=== PATIENT | female | born 1955 | race Caucasian/White ===

== ENCOUNTER → 2019-08-09 09:40 | Outpatient (BNVA) | payer SELFPAY | PROVIDERS: Referring Provider Nurse Practitioner Family; Visit Provider Orthopaedic Surgery | DX: S69.92XA Unspecified injury of left wrist, hand and finger(s), initial encounter (principal); S52.502A Unspecified fracture of the lower end of left radius, initial encounter for closed fracture; X58.XXXA Exposure to other specified factors, initial encounter | CPT/HCPCS: 73110 ==

== ENCOUNTER 2019-08-09 13:15 | Day surgery (SDC) | payer SELFPAY ==
[2019-08-09] VITALS (9 sets, daily range): BP systolic 106–171; BP diastolic 68–87; PULSE 72–89; RESP 13–21; TEMP 36.1–36.6; O2SAT 92–99; BMI 22.6
--- NOTE | 2019-08-09 | XR_ITS ---
WS: [id number] C-ARM RADIOGRAPHS LEFT WRIST; 3 IMAGES HISTORY: OR PICS COMPARISON: 08/09/2019 Plate and screw fixation distal radial fracture. Fracture in normal alignment. Reduction and fixation . XR/XR wrist LT 2V [id number] IMPRESSION: Status post ORIF distal radial fracture now in good alignment.
--- NOTE | 2019-08-09 | SCC_ITS ---
Procedure Done: Open reduction internal fixation left 2 part distal radius fracture (extra-articular) 25.2 seconds of fluoroscopic guidance, for a cumulative dose of 1.32 mGy, was provided to Dr. Watts by the radiology department. C-arm images of the LEFT wrist were saved for the patient's permanent record. [facility], [place]
--- NOTE | 2019-08-09 14:07 | ANES.PREANE2 ---
Pre-Anesthetic Assessment Pre-Anesthetic Assessment: Height/Weight: Height 1.66 m Weight 62.596 kg Preop Diagnosis: impacted left distal radius fracture Proposed Procedure: Operation Date: 08/09/19 16:05 Proposed Procedures p ORIF Wrist 66830 S52.502A(Left) - Jeffrey Watts DO Familial anesthetic complications: None Was Beta Sherin taken within 24 hours: N/A Last intake: Intake 07 cinnamon toast crunch Last Liquid Date 08/09/19 Last Liquid Time 08:30 Last Solid Date 08/09/19 Last Solid Time 07:30 Social: Social History: Tobacco and No alcohol Exam: Pre-Anes Outpt Exam: alert, oriented x 3, clear to auscultation bilaterally and regular rate & rhythm Airway: Cervical ROM: WNL MP: 3 Dentition: False and Partials Pulmonary: Pulmonary: None reported CV/HEM: CV/HEM: None reported : : None reported Hepatic: Hepatic: None reported GI: GI: None reported Metabolic: Metabolic: None reported Musc/skel: Musc/skel: None reported Neuropsych: Neuropsych: None reported Anesthetic Plan: ASA status: 2 Anesthesia: General and Regional (specify below) Risk of > 500 ml blood loss (7ml/kg in children): No PFSH Anesthesia PFSH: Social History Smoking and tobacco status: current every day smoker Alcohol intake: never Data Anesthesia Cardiac Studies: No Data to Display
[2019-08-09] MEDS: midazolam 1 mg/mL INJ 2 mL 2 MG IVP (14:20)
[2019-08-09] MEDS: fentaNYL 50 mcg/mL INJ 2mL 100 MCG IVP (14:25)
--- NOTE | 2019-08-09 14:34 | ANES.PROC ---
Anesthesia Procedures Procedure/Date: 08/09/19 Nerve Block ^: Nerve Block 1: Main Anesthesia: general anesthesia Time Out Performed: Yes Consent: requested by attending/covering physician, from patient, risks and benefits reviewed and patient agrees to proceed Nerve block location: axillary (L + musculocutaneous) Anesthesia monitors applied: pulse oximetry, BP cuff and oxygen Anesthetic Used: ropivicaine 0.5% and with decadron (4 mg) Amount of anesthesia used (mL): 30 Ultrasound used to: recognize landmarks Nerve Stimulator Used?: No Interscalene/Femoral BLK: 2 stimuplex 22 g needle used for position and inplane approach, visualize local anesthetic spread and no vascular puncture identified Injection: neg aspiration of heme and paresthesia +/- (Parasthesia during placement of needle with immediate repositioning of stimuplex, no parasthesia before or during injections) Patient Tolerated Procedure: no complications Complications: none
[2019-08-09] MEDS: sodium chloride 0.9% 1,000 ML 30 ML IV (14:38)
[2019-08-09] MEDS: cefUROXime 1,500 MG in sodium chloride 0.9% (plus) 50 ML 100 MG IV (15:46)
[2019-08-09] MEDS: neomycin-poly-bacitracin oint 28 gm 1 APPLIC TOPICAL (16:39)
--- NOTE | 2019-08-09 17:01 | SUR.PHASEI ---
5437 PATIENT TO PACU AT THIS TIME FROM OR. RR EVEN AND UNLABORED. ORAL AIRWAY IN PLACE. DRESSING TO LEFT WRIST, CDI. CAP REFILL INTACT.
--- NOTE | 2019-08-09 17:04 | SUR.PHASEI ---
1704 ORAL AIRWAY REMOVED AT THIS TIME. SPO2 100% ON RA.
--- NOTE | 2019-08-09 17:26 | PM.OP ---
Operative Report Date of procedure: August 09, 2019 Pre-op Diagnosis: impacted left distal radius fracture Post-op diagnosis: same Post-op Findings: Satisfactory reduction left distal radius fracture Procedure Done: Open reduction internal fixation left 2 part distal radius fracture (extra-articular) Pathology: none sent Surgeon: Jeffrey Watts Anesthesia: General and Nerve Block Estimated blood loss (mL): 5 Tourniquet time (min): 59 IV fluids (mL): 1,000 Complications: No apparent complications Findings: Satisfactory reduction of fracture on AP and lateral images Condition: stable Disposition: PACU Brief History: D4-year-old white female had a fall on outstretched upper extremity. Sustained a fracture of her left distal radius. She was seen in outside medical facility. She is referred for orthopedic evaluation. Date of injury was 07/31/2019. She is seen in the office today. She had an impacted extra-articular distal radius fracture. The distal radius articular surface tilt was 20 degrees dorsiflexion versus palmar flex 12 degrees. She was a set up for an impending malunion. I recommend she undergo surgical prevention. Risks of surgical intervention include not limited to, infection, nerve/blood vessel/injury, failure fracture to heal potential cut out of implants which could require repeat surgery. Medical complications can include blood clots, heart attack, stroke risk up to including . All questions were answered patient we will proceed with surgery. Procedure: 1.5 g Zinacef Patient identified. Surgical site signed. Surgical permit signed. Patient received 1.5 g of Zinacef for prophylaxis intravenously. The patient received a left-sided axillary nerve block for intraoperative and postoperative analgesia. The patient was taken to the operating room. She was given intravenous sedation. Tourniquet is placed about the upper aspect of the left upper extremity. Left upper extremity was sterilely prepped draped fashion. Left upper extremity was exsanguinated using the Esmarch bandage and the tourniquet was inflated to 250 millimeters mercury pressure. Using a skin knife a 14 cm incision was made first longitudinally over the underlying flexor carpi radialis tendon and then turning obliquely over the thenar eminence. Full-thickness skin flaps were made. Crossing veins were coagulated with electrocautery. The flexor carpi radialis tendon was mobilized and retracted radially. The floor the tendon sheath was incised with a second knife. Using blunt digital dissection the flexor tendons and median nerve were pushed ulnarward and a self-retaining retractor was put in place. Using a second knife the pronator quadratus was released off the radial border of the volar surface of distal radius and swept ulnarward and held in place with the repositioned self-retaining retractor. The fracture site was identified in the fracture fragments reduced and appropriate sized volar plate from the [employer] Volar plate set was positioned in place and pinned provisionally using K wires. Fluoroscopic imaging demonstrated satisfactory reduction of the fracture and positioning of the plate. The volar plate was first secured using locking screws placed distally. the proximal aspect of the plate was then reduced down to the shaft of the radius helping correct the impaction of the fracture site. The proximal aspect of the plate was held in place then using a cortical screw and the oblong hole. Additional locking screws were placed proximally and distally. Fluoroscopic imaging was used to verify the appropriate length and placement of screws in both the distal portion of the plate as well as the shaft screws. Fluoroscopic imaging demonstrated satisfactory reduction placement of implants with no apparent complications. The incision was irrigated with Betadine-containing saline solution followed by antibiotic containing saline solution. The pronator quadratus muscle was swept radialward. Incision was closed in layers with 4-0 nylon skin. Antibiotic ointment was applied followed by Telfa and 4 x 4's. Sterile cast padding was applied followed by a volar plaster splint and an Prabhjot overwrap. The tourniquet was deflated during application of dressings. The patient was aroused from IV sedation. She tolerated surgery well. She was taken to the recovery room. All counts are correct.
--- NOTE | 2019-08-09 17:37 | SUR.PHASEI ---
1727 PATIENT TO OPS AT THIS TIME. DENIES PAIN. PATIENT A/OX3. TOLERATING ICE CHIPS. DRESSING TO LEFT WRIST, CDI CAP REFILL INTACT.
== END 2019-08-09 18:02 | disposition home or self-care (01) ==
PROVIDERS: Visit Provider Orthopaedic Surgery
PROC: (CPT 25607; principal; 2019-08-09 15:45)
DX: S52.552A Other extraarticular fracture of lower end of left radius, initial encounter for closed fracture (principal); W19.XXXA Unspecified fall, initial encounter; F17.210 Nicotine dependence, cigarettes, uncomplicated
CPT/HCPCS: 25607; 12345; 73100; 73120; 76000; 96365; 96374; 96375; C1713; J0131; J0697; J1100; J1580; J1885; J2001; J2250; J2405; J2704; J2795; J3010; J3490; J7030

== ENCOUNTER → 2019-08-25 14:19 | Outpatient (BNVA) | payer SELFPAY | PROVIDERS: Visit Provider Orthopaedic Surgery | DX: T14.8XXA Other injury of unspecified body region, initial encounter (principal); S52.502A Unspecified fracture of the lower end of left radius, initial encounter for closed fracture; Z48.89 Encounter for other specified surgical aftercare; X58.XXXA Exposure to other specified factors, initial encounter | CPT/HCPCS: 73110 ==

== ENCOUNTER → 2019-09-24 10:19 | Outpatient (BNVA) | payer SELFPAY | PROVIDERS: Visit Provider Orthopaedic Surgery | DX: S52.502D Unspecified fracture of the lower end of left radius, subsequent encounter for closed fracture with routine healing (principal); X58.XXXD Exposure to other specified factors, subsequent encounter | CPT/HCPCS: 73110 ==

== ENCOUNTER → 2019-10-20 10:51 | Outpatient (BNVA) | payer SELFPAY | PROVIDERS: Visit Provider Orthopaedic Surgery | DX: S52.502A Unspecified fracture of the lower end of left radius, initial encounter for closed fracture (principal); Z48.89 Encounter for other specified surgical aftercare; X58.XXXA Exposure to other specified factors, initial encounter | CPT/HCPCS: 73110 ==

== ENCOUNTER → 2021-01-17 16:56 | Outpatient (BNVA) | payer OTHER, SELFPAY | PROVIDERS: Visit Provider Emergency Medicine | DX: M25.562 Pain in left knee (principal); M17.12 Unilateral primary osteoarthritis, left knee | CPT/HCPCS: 73562 ==

== ENCOUNTER → 2021-01-25 09:17 | Outpatient (BNVA) | payer OTHER, SELFPAY | PROVIDERS: Visit Provider Emergency Medicine | DX: S82.009A Unspecified fracture of unspecified patella, initial encounter for closed fracture (principal); M17.12 Unilateral primary osteoarthritis, left knee; M25.562 Pain in left knee; X58.XXXA Exposure to other specified factors, initial encounter | CPT/HCPCS: 73562 ==

== ENCOUNTER 2021-11-28 17:18 | Emergency (ER) | payer MEDICARE, SELFPAY ==
[2021-11-28 17:55] VITALS: BP 198/116; PULSE 88; RESP 15; TEMP 36.8; O2SAT 98; BMI 21.6
--- NOTE | 2021-11-28 18:07 | CTR_ITS ---
PROCEDURE INFORMATION: Exam: CT Maxillofacial Without Contrast Exam date and time: 11/28/2021 6:51 PM Age: 66 years old Clinical indication: Injury or trauma; Fall; Blunt trauma (contusions or hematomas); Head/scalp and nose; Without loss of consciousness TECHNIQUE: Imaging protocol: Computed tomography of the of the face without contrast. Radiation optimization: All CT scans at this facility use at least one of these dose optimization techniques: automated exposure control; mA and/or kV adjustment per patient size (includes targeted exams where dose is matched to clinical indication); or iterative reconstruction. COMPARISON: CT head wo con* [id number] 11/28/2021 6:48 PM RADIATION DOSE METRICS: Total DLP (mGy-cm): 583.88 FINDINGS: Orbital cavities: Orbits are normal. Globes are unremarkable. Bones/joints: No acute fracture. Paranasal sinuses: Normal. No air-fluid levels. Soft tissues: Unremarkable. CT/CT facial bones wo con* [id number] IMPRESSION: No facial bone fracture.
--- NOTE | 2021-11-28 18:07 | CTR_ITS ---
PROCEDURE INFORMATION: Exam: CT Head Without Contrast Exam date and time: 11/28/2021 6:48 PM Age: 66 years old Clinical indication: Injury or trauma; Fall; Blunt trauma (contusions or hematomas); Additional info: Fall, patient unable to lay on back for scan due to pain. All imaging was done with patient laying on her left side. TECHNIQUE: Imaging protocol: Computed tomography of the head without contrast. Sagittal and coronal reformatted images were created and reviewed. Radiation optimization: All CT scans at this facility use at least one of these dose optimization techniques: automated exposure control; mA and/or kV adjustment per patient size (includes targeted exams where dose is matched to clinical indication); or iterative reconstruction. COMPARISON: No relevant prior studies available. RADIATION DOSE METRICS: Total DLP (mGy-cm): 1098.6 FINDINGS: Brain: No acute intracranial hemorrhage. No acute infarct. No intra-axial or extra-axial masses. [place]-white matter differentiation is preserved. No cerebral edema. No extra-axial fluid collections. No midline shift. Mild atrophy of the brain parenchyma. Mildly decreased attenuation in the deep white matter, consistent with mild chronic microangiopathic change. No evidence for Chiari 1 malformation. Cerebral ventricles: No hydrocephalus. Paranasal sinuses: Visualized paranasal sinuses are clear. Mastoid air cells: Small amount of fluid in the right and left mastoid air cells. Orbital cavities: Globes and lenses, extraocular muscles, and optic nerves are intact bilaterally. No acute intraorbital abnormality. Bones/joints: No acute fracture. Soft tissues: No acute abnormality of the extracranial soft tissues. Vasculature: Mild atherosclerotic changes in the visualized arteries. CT/CT head wo con* [id number] IMPRESSION: 1. Mild atrophy of the brain parenchyma. 2. Mild chronic white matter microangiopathic change. 3. Small amount of fluid in the right and left mastoid air cells. 4. Incidental/nonacute findings are listed in the report.
--- NOTE | 2021-11-28 18:07 | CTR_ITS ---
PROCEDURE INFORMATION: Exam: CT Chest Without Contrast; Diagnostic Exam date and time: 11/28/2021 6:53 PM Age: 66 years old Clinical indication: Injury or trauma; Fall; Generalized; Blunt trauma (contusions or hematomas); Prior surgery; Surgery date: 6+ months; Surgery type: Gb, hyst, appx, c sections; Additional info: Fall trauma TECHNIQUE: Imaging protocol: Diagnostic computed tomography of the chest without contrast. Sagittal and coronal reformatted images were created and reviewed. Radiation optimization: All CT scans at this facility use at least one of these dose optimization techniques: automated exposure control; mA and/or kV adjustment per patient size (includes targeted exams where dose is matched to clinical indication); or iterative reconstruction. COMPARISON: CT abdomen pelvis w con* [id number] 10/17/2017 1:58 PM RADIATION DOSE METRICS: Total DLP (mGy-cm): 572.51 FINDINGS: Limitations: Evaluation of the mediastinum and vasculature is limited without intravenous contrast. Trachea: Tracheobronchial structures are patent. Lungs: Mild ground-glass opacification in the lateral left lingula and anterolateral left lower lobe suspicious for pulmonary contusion. Noncalcified nodule in the right middle lobe with an average measurement of 5 mm (series 3, image 43). Pleural spaces: No pneumothorax. No pleural effusion. Heart: Stable mild enlargement of the heart. Mild atherosclerotic calcification in the coronary arteries. Calcification of the aortic valve. Esophagus: The esophagus is unremarkable. Mediastinal space: No mediastinal hematoma. No pneumomediastinum. Lymph nodes: Calcified mediastinal and bilateral hilar lymph nodes. Vasculature: Mild atherosclerotic changes in the visualized arteries. No evidence for aortic aneurysm. Bones/joints: Bones are diffusely osteopenic. Old fractures of the posterior right 7th, 8th, and 9th ribs. No acute fracture. Multilevel degenerative changes of varying severity in the visualized spine. Soft tissues: No acute abnormality in the extrathoracic soft tissues. risk factors), consider optional CT Chest at 12 months. (Reference: Perico) 3. Incidental/nonacute findings are listed in the report. REFERENCES: Perico Rivera et al. Guidelines for Management of Incidental Pulmonary Nodules Detected on CT Images: From the Fleischner Society 2017. Radiology. 2017;284(1):228-243. PROCEDURE INFORMATION: Exam: CT Abdomen And Pelvis Without Contrast Exam date and time: 11/28/2021 6:53 PM Age: 66 years old Clinical indication: Injury or trauma; Fall; Generalized; Blunt trauma (contusions or hematomas); Prior surgery; Surgery date: 6+ months; Surgery type: Gb, hyst, appx, c sections; Additional info: Fall trauma TECHNIQUE: Imaging protocol: Computed tomography of the abdomen and pelvis without contrast. Sagittal and coronal reformatted images were created and reviewed. Radiation optimization: All CT scans at this facility use at least one of these dose optimization techniques: automated exposure control; mA and/or kV adjustment per patient size (includes targeted exams where dose is matched to clinical indication); or iterative reconstruction. COMPARISON: CT abdomen pelvis w con* [id number] 10/17/2017 1:58 PM RADIATION DOSE METRICS: Total DLP (mGy-cm): 572.51 FINDINGS: Limitations: Evaluation of solid organs and vasculature is limited without intravenous contrast. Liver: Multiple calcified granulomas in the liver. Gallbladder and bile ducts: Patient has had a previous cholecystectomy. Pancreas: The pancreas is unremarkable. No pancreatic ductal dilatation. Spleen: Multiple calcified granulomas in the spleen. Adrenal glands: The right and left adrenal glands are unremarkable. Kidneys and ureters: The right kidney is unremarkable. Interval development of mild atrophy involving the left kidney with mild left hydronephrosis and mild left perinephric inflammation. The right and left ureters are unremarkable. Stomach and bowel: Scattered diverticula in the sigmoid colon. No evidence for diverticulitis. No acute abnormality in the small bowel. The stomach is collapsed, which can limit evaluation. No focal abnormality in the stomach otherwise. Appendix: Appendix not definitely visualized. No inflammatory changes in the pericecal region however. Intraperitoneal space: No free intraperitoneal air. No ascites. No loculated fluid collections to suggest an abscess. Vasculature: Moderate atherosclerotic changes in the visualized arteries. No evidence for aortic aneurysm. Lymph nodes: No lymphadenopathy. Urinary bladder: The bladder is unremarkable. Reproductive: The uterus, right ovary, and left ovary are unremarkable. Bones/joints: Degenerative changes in the spine, sacroiliac joints, and hips. Soft tissues: No acute abnormality in the extra-abdominal soft tissues. CT/[place] [id number] IMPRESSION: 1. Mild ground-glass opacification in the lateral left lingula and anterolateral left lower lobe suspicious for pulmonary contusion. 2. Noncalcified nodule in the right middle lobe with an average measurement of 5 mm (series 3, image 43). For patients at low risk (minimal or absent history of smoking and of other known risk factors), no routine follow-up is indicated. For patients at high risk (history of smoking or of other known IMPRESSION: 1. Interval development of mild atrophy involving the left kidney with mild left hydronephrosis and mild left perinephric inflammation. Findings could suggest left UPJ obstruction. Recommend clinical correlation. 2. No evidence for acute traumatic injury in the abdomen or pelvis. 3. Scattered diverticula in the sigmoid colon. No evidence for diverticulitis. 4. Incidental/nonacute findings are listed in the report.
--- NOTE | 2021-11-28 18:09 | W.ED.GENADLT ---
HPI - General Adult General: Chief complaint: Fall Stated complaint: Fall/rib pain Time Seen by Provider: 11/28/21 18:07 History of Present Illness: Patient is a 66-year-old female without significant past medical who presents emergency room after an episode of fall. Patient tells me that she was cooking and in the kitchen when she spilled some of the grease and she slipped on the grease and fell forward. Patient fell face down. Patient denies any LOC. Patient complains of anterior chest pain that radiates towards the back. Patient also reports headache. Denies any neck pain, arm pain or other injuries. Patient denies any anticoagulation. Has no associate chest pain, short of breath, palpitation, lightheadedness nausea/vomiting, diarrhea melena hematochezia. Patient denies any other complaints during, prior to or after the fall. Onset: 1 hr ago Duration:once Location:home Severity:moderate Associated symptoms: Reports chest pain (+anterior chest pain); Deny dyspnea, nausea, rash, palpitations or vomiting Review of Systems Const: Denies: fever(s) or chills Eyes: Denies: change in vision ENMT: Denies: mouth pain Card: Reports: chest pain (+anterior chest pain); Denies: palpitations Resp: Denies: dyspnea or non-productive cough GI: Reports: abdominal pain (+upper abdominal pain); Denies: nausea, vomiting or diarrhea : Denies: dysuria Musc: Denies: extremity pain Skin/Breast: Denies: rash or new lesions Neuro: Denies: weakness in extremities Psych: Reports: other (Normal mood) Dino/Lymph: Denies: easy bruising PFS ED PFSH: Medical History Allergies Family History Other Cancer Social History Smoking and tobacco status: never smoked Alcohol intake: never Substance/Drug Use: never Female Reproductive History: Spontaneous abortions: No Physical Exam Const: COMMON NORMALS: alert HENMT: COMMON NORMALS: atraumatic HEAD & SCALP: atraumatic MOUTH: moist mucous membranes not abnormal Eye: COMMON NORMALS: EOMs intact bilaterally and conjunctivae normal CONJUNCTIVA: Yes conjunctivae normal Neck/C-Spine: COMMON NORMALS: full ROM and supple Chest: OTHER: +Mild anterior manubrium tenderness to palpation Resp: COMMON NORMALS: normal respiratory effort and clear to auscultation bilaterally AUSCULTATION: clear to auscultation bilaterally Cardio: COMMON NORMALS: regular rate RATE: regular rate GI: COMMON NORMALS: Soft to palpation PALPATION: Yes Soft to palpation OTHER: +mild midepigastric focal TTP. NO guarding rebound, guarding, rigidity. No CVA tenderness to percussion. Neg Stout/Neg McBurney's point tenderness, no suprabupic tenderness to palpation. Extremity: COMMON NORMALS: full ROM Neuro: SENSORIUM/ORIENTATION: Yes alert MOTOR EXAM: No Abnormal motor strength present and Other motor observations present (no focal motor deficits) Psych: COMMON NORMALS: speech normal SPEECH: Yes normal speech MOOD & AFFECT: Yes euthymic mood Course Vital Signs: Vital signs: Vital Signs Temperature 98.3 F 11/28/21 17:55 Pulse Rate 88 11/28/21 17:55 Respiratory Rate 18 11/28/21 18:20 Blood Pressure 198/116 11/28/21 17:55 Pulse Oximetry 98 11/28/21 17:55 Oxygen Delivery Me thod 11/28/21 17:55 MDM - General Adult Medical Decision Making Patient is a 66-year-old female without significant past medical who presents emergency room after an episode of fall. On exam, patient has mild tenderness palpation of the manubrium and midepigastric jeremie area. Patient has no crepitus or other focal chest abdominal tenderness to palpation. Patient continues to be hemodynamically stable. Given fall, we will order imaging for further evaluation. CT head, CT face negative for any acute findings. Patient received morphine and Tylenol with improvement in pain. On CT abdomen, patient was found to have left mild hydronephrosis with mild perinephric stranding. UA negative for any signs of UTI. Patient is noted to have creatinine 1.1. Discussed this with patient instructed patient to drink plenty water and repeat creatinine in 1 week. No leukocytosis. Patient is noted on CT scan to have pulmonary contusion. Troponin x2 with delta less than 5. The present time, do not suspect any concerns for cardiac contusion. There is no new T wave inversions at this time. Patient continues satting well, without any signs of respiratory decompensation. Patient will be given close follow-up with general surgery at this time. Rx: Perocet Lidocaine patch, and menthol PRN pain, incentive spirometer for pulmonary contusion Disposition: Discharge. Patient counseled regarding diagnostic impression, treatment plan. Patient given ED strict return precautions to return for continuation, worsening, or development of new symptoms. Instructed to f/u w/ PCP regarding symptoms today. Patient verbalized understanding. Lab Data : 11/28/21 21:02 11/28/21 21:02 Radiology Impressions Chest/Abdomen/Pelvis CT 11/28/21 18:07 IMPRESSION: 1. Mild ground-glass opacification in the lateral left lingula and anterolateral left lower lobe suspicious for pulmonary contusion. 2. Noncalcified nodule in the right middle lobe with an average measurement of 5 mm (series 3, image 43). For patients at low risk (minimal or absent history of smoking and of other known risk factors), no routine follow-up is indicated. For patients at high risk (history of smoking or of other known IMPRESSION: 1. Interval development of mild atrophy involving the left kidney with mild left hydronephrosis and mild left perinephric inflammation. Findings could suggest left UPJ obstruction. Recommend clinical correlation. 2. No evidence for acute traumatic injury in the abdomen or pelvis. 3. Scattered diverticula in the sigmoid colon. No evidence for diverticulitis. 4. Incidental/nonacute findings are listed in the report. Face CT 11/28/21 18:07 IMPRESSION: No facial bone fracture. Head CT 11/28/21 18:07 IMPRESSION: 1. Mild atrophy of the brain parenchyma. 2. Mild chronic white matter microangiopathic change. 3. Small amount of fluid in the right and left mastoid air cells. 4. Incidental/nonacute findings are listed in the report. Laboratory Results WBC 9.3 10^3/uL (4.0-10.0) 11/28/21 21:02 RBC 4.75 10^6/uL (4.1-5.3) 11/28/21 21:02 Hgb 14.8 g/dL (11.5-15.3) 11/28/21 21:02 Hct 43.7 % (37.0-47.0) 11/28/21 21:02 MCV 92.0 fl (81-99) 11/28/21 21:02 MCH 31.2 pg (28.0-34.0) 11/28/21 21:02 MCHC 33.9 g/dL (30.0-36.0) 11/28/21 21:02 RDW 13.2 % (12.1-15.1) 11/28/21 21:02 Plt Count 257 10^3/cmm (130-400) 11/28/21 21:02 MPV 9.4 fL (7.4-10.4) 11/28/21 21:02 Neut % (Auto) 54.4 % 11/28/21 21:02 Lymph % (Auto) 38.1 % 11/28/21 21:02 [place] % (Auto) 6.0 % 11/28/21 21:02 Eos % (Auto) 1.0 % 11/28/21 21:02 Baso % (Auto) 0.3 % 11/28/21 21: Neut # (Auto) 5.07 10^3/uL (1.8-7.7) 11/28/21 21: Lymph # (Auto) 3.6 10^3/uL (0.8-4.8) 11/28/21 21:02 [place] # (Auto) 0.6 10^3/uL (0.2-0.9) 11/28/21 21:02 Eos # (Auto) 0.1 10^3/uL (0.0-0.8) 11/28/21 21: Baso # (Auto) 0.0 10^3/uL (0.0-0.1) 11/28/21 21: Nucleated RBC % (auto) 0 % 11/28/21 21: Nucleated RBCs # 0.0 /100WBC 11/28/21 21:02 Sodium 138 mmol/L (136-145) 11/28/21 21:02 Potassium 4.0 mmol/L (3.5-5.1) 11/28/21 21:02 Chloride 103 mmol/L (98-107) 11/28/21 21:02 Carbon Dioxide 25 mmol/L (22-29) 11/28/21 21:02 Anion Gap 14.0 (5-19) 11/28/21 21:02 BUN 15 mg/dL (8-23) 11/28/21 21:02 Creatinine 1.1 mg/dL (0.5-0.9) H 11/28/21 21:02 GFR Calculation 49.7 mL/min (90-130) L 11/28/21 21:02 Glucose 83 mg/dL (65-115) 11/28/21 21:02 Calculated Osmolality 286 mOsm/kg (285-295) 11/28/21 21:02 Calcium 9.6 mg/dL (8.5-10.5) 11/28/21 21:02 Total Bilirubin 0.5 mg/dL (0.15-1.2) 11/28/21 21:02 AST 19 U/L (0-32) 11/28/21 21:02 ALT 21 U/L (0-33) 11/28/21 21:02 Alkaline Phosphatase 96 U/L (35-105) 11/28/21 21:02 Troponin T Baseline 15 ng/L (0-10) H 11/28/21 21:02 Troponin T 120 Minute 14.79 ng/L (0-10) H 11/28/21 22:11 Delta Troponin T -0.21 ABS# (0-10) L 11/28/21 22:11 Total Protein 7.0 g/dL (6.6-8.7) 11/28/21 21:02 Albumin 4.3 g/dL (3.5-5.2) 11/28/21 21:02 Globulin 2.7 g/dL (1.3-4.6) 11/28/21 21:02 Lipase 125 U/L (13-60) H 11/28/21 21:02 Urine Color Yellow (Yellow) 11/28/21 20:48 Urine Appearance Sl hazy (CLEAR) 11/28/21 20:48 Urine pH 5 (5-7) 11/28/21 20:48 Ur Specific [place] 1.020 (1.005-1.030) 11/28/21 20:48 Urine Protein Neg (Negative) 11/28/21 20:48 Urine Glucose (UA) Norm (Normal) 11/28/21 20:48 Urine Ketones Negative (Negative) 11/28/21 20:48 Urine Blood Neg (Negative) 11/28/21 20:48 Urine Nitrate Negative (Negative) 11/28/21 20:48 Urine Bilirubin Neg (Negative) 11/28/21 20:48 Urine Urobilinogen Norm mg/dL (Negative) 11/28/21 20:48 Ur Leukocyte Esterase Negative (Negative) 11/28/21 20:48 Imaging Data Other Imaging: Radiologist's impression: [facility] [address] [place] [address] CT Scan Report Signed Patient: Sharon Munguia Unit #: [id number] : 1955 Age/Sex: 66 / F ADM Date: 11/28/21 Loc: ER Room/Bed: Attending Dr: Ordering Provider/Ordering MD: Marco A Torres MD Date of Service: 11/28/21 Procedure(s): CT head wo con* [id number] Accession Number(s): [id number] Report Number: [id number] PROCEDURE INFORMATION: Exam: CT Head Without Contrast Exam date and time: 11/28/2021 6:48 PM Age: 66 years old Clinical indication: Injury or trauma; Fall; Blunt trauma (contusions or hematomas); Additional info: Fall, patient unable to lay on back for scan due to pain. All imaging was done with patient laying on her left side. TECHNIQUE: Imaging protocol: Computed tomography of the head without contrast. Sagittal and coronal reformatted images were created and reviewed. Radiation optimization: All CT scans at this facility use at least one of these dose optimization techniques: automated exposure control; mA and/or kV adjustment per patient size (includes targeted exams where dose is matched to clinical indication); or iterative reconstruction. COMPARISON: No relevant prior studies available. RADIATION DOSE METRICS: Total DLP (mGy-cm): 1098.6 FINDINGS: Brain: No acute intracranial hemorrhage. No acute infarct. No intra-axial or extra-axial masses. [place]-white matter differentiation is preserved. No cerebral edema. No extra-axial fluid collections. No midline shift. Mild atrophy of the brain parenchyma. Mildly decreased attenuation in the deep white matter, consistent with mild chronic microangiopathic change. No evidence for Chiari 1 malformation. Cerebral ventricles: No hydrocephalus. Paranasal sinuses: Visualized paranasal sinuses are clear. Mastoid air cells: Small amount of fluid in the right and left mastoid air cells. Orbital cavities: Globes and lenses, extraocular muscles, and optic nerves are intact bilaterally. No acute intraorbital abnormality. Bones/joints: No acute fracture. Soft tissues: No acute abnormality of the extracranial soft tissues. Vasculature: Mild atherosclerotic changes in the visualized arteries. CT/CT head wo con* [id number] IMPRESSION: 1. Mild atrophy of the brain parenchyma. 2. Mild chronic white matter microangiopathic change. 3. Small amount of fluid in the right and left mastoid air cells. 4. Incidental/nonacute findings are listed in the report. ? Dictated By: Margarita Helm MD Signed By: Margarita Helm MD Signed Date/Time: 11/28/211935 DD/ [address] [place] [address] CT Scan Report Signed Patient: Sharon Munguia Unit #: [id number] : 1955 Age/Sex: 66 / F ADM Date: 11/28/21 Loc: ER Room/Bed: Attending Dr: Ordering Provider/Ordering MD: Marco A Torres MD Date of Service: 11/28/21 Procedure(s): CT head wo con* [id number] Accession Number(s): [id number] Report Number: [id number] PROCEDURE INFORMATION: Exam: CT Head Without Contrast Exam date and time: 11/28/2021 6:48 PM Age: 66 years old Clinical indication: Injury or trauma; Fall; Blunt trauma (contusions or hematomas); Additional info: Fall, patient unable to lay on back for scan due to pain. All imaging was done with patient laying on her left side. TECHNIQUE: Imaging protocol: Computed tomography of the head without contrast. Sagittal and coronal reformatted images were created and reviewed. Radiation optimization: All CT scans at this facility use at least one of these dose optimization techniques: automated exposure control; mA and/or kV adjustment per patient size (includes targeted exams where dose is matched to clinical indication); or iterative reconstruction. COMPARISON: No relevant prior studies available. RADIATION DOSE METRICS: Total DLP (mGy-cm): 1098.6 FINDINGS: Brain: No acute intracranial hemorrhage. No acute infarct. No intra-axial or extra-axial masses. [place]-white matter differentiation is preserved. No cerebral edema. No extra-axial fluid collections. No midline shift. Mild atrophy of the brain parenchyma. Mildly decreased attenuation in the deep white matter, consistent with mild chronic microangiopathic change. No evidence for Chiari 1 malformation. Cerebral ventricles: No hydrocephalus. Paranasal sinuses: Visualized paranasal sinuses are clear. Mastoid air cells: Small amount of fluid in the right and left mastoid air cells. Orbital cavities: Globes and lenses, extraocular muscles, and optic nerves are intact bilaterally. No acute intraorbital abnormality. Bones/joints: No acute fracture. Soft tissues: No acute abnormality of the extracranial soft tissues. Vasculature: Mild atherosclerotic changes in the visualized arteries. CT/CT head wo con* [id number] IMPRESSION: 1. Mild atrophy of the brain parenchyma. 2. Mild chronic white matter microangiopathic change. 3. Small amount of fluid in the right and left mastoid air cells. 4. Incidental/nonacute findings are listed in the report. ? Dictated By: Margarita Helm MD Signed By: Margarita Helm MD Signed Date/Time: 11/28/211935 DD/ [address] [place] [address] CT Scan Report Signed Patient: Sharon Munguia Unit #: [id number] : 1955 Age/Sex: 66 / F ADM Date: 11/28/21 Loc: ER Room/Bed: Attending Dr: Ordering Provider/Ordering MD: Marco A Torres MD Date of Service: 11/28/21 Procedure(s): CT facial bones wo con* [id number] Accession Number(s): [id number] Report Number: [id number] PROCEDURE INFORMATION: Exam: CT Maxillofacial Without Contrast Exam date and time: 11/28/2021 6:51 PM Age: 66 years old Clinical indication: Injury or trauma; Fall; Blunt trauma (contusions or hematomas); Head/scalp and nose; Without loss of consciousness TECHNIQUE: Imaging protocol: Computed tomography of the of the face without contrast. Radiation optimization: All CT scans at this facility use at least one of these dose optimization techniques: automated exposure control; mA and/or kV adjustment per patient size (includes targeted exams where dose is matched to clinical indication); or iterative reconstruction. COMPARISON: CT head wo con* [id number] 11/28/2021 6:48 PM RADIATION DOSE METRICS: Total DLP (mGy-cm): 583.88 FINDINGS: Orbital cavities: Orbits are normal. Globes are unremarkable. Bones/joints: No acute fracture. Paranasal sinuses: Normal. No air-fluid levels. Soft tissues: Unremarkable. CT/CT facial bones wo con* [id number] IMPRESSION: No facial bone fracture. ? Dictated By: David Gonzalez MD Signed By: David Gonzalez MD Signed Date/Time: 11/28/211952 DD/ [address] [address] [address] Scan Report Signed Patient: Sharon Munguia Unit #: [id number] : 1955 Age/Sex: 66 / F ADM Date: 11/28/21 Loc: ER Room/Bed: Attending Dr: Ordering Provider/Ordering MD: Marco A Torres MD Date of Service: 11/28/21 Procedure(s): [place] [id number] Accession Number(s): [id number] Report Number: [id number] PROCEDURE INFORMATION: Exam: CT Chest Without Contrast; Diagnostic Exam date and time: 11/28/2021 6:53 PM Age: 66 years old Clinical indication: Injury or trauma; Fall; Generalized; Blunt trauma (contusions or hematomas); Prior surgery; Surgery date: 6+ months; Surgery type: Gb, hyst, appx, c sections; Additional info: Fall trauma TECHNIQUE: Imaging protocol: Diagnostic computed tomography of the chest without contrast. Sagittal and coronal reformatted images were created and reviewed. Radiation optimization: All CT scans at this facility use at least one of these dose optimization techniques: automated exposure control; mA and/or kV adjustment per patient size (includes targeted exams where dose is matched to clinical indication); or iterative reconstruction. COMPARISON: CT abdomen pelvis w con* [id number] 10/17/2017 1:58 PM RADIATION DOSE METRICS: Total DLP (mGy-cm): 572.51 FINDINGS: Limitations: Evaluation of the mediastinum and vasculature is limited without intravenous contrast. Trachea: Tracheobronchial structures are patent. Lungs: Mild ground-glass opacification in the lateral left lingula and anterolateral left lower lobe suspicious for pulmonary contusion. Noncalcified nodule in the right middle lobe with an average measurement of 5 mm (series 3, image 43). Pleural spaces: No pneumothorax. No pleural effusion. Heart: Stable mild enlargement of the heart. Mild atherosclerotic calcification in the coronary arteries. Calcification of the aortic valve. Esophagus: The esophagus is unremarkable. Mediastinal space: No mediastinal hematoma. No pneumomediastinum. Lymph nodes: Calcified mediastinal and bilateral hilar lymph nodes. Vasculature: Mild atherosclerotic changes in the visualized arteries. No evidence for aortic aneurysm. Bones/joints: Bones are diffusely osteopenic. Old fractures of the posterior right 7th, 8th, and 9th ribs. No acute fracture. Multilevel degenerative changes of varying severity in the visualized spine. Soft tissues: No acute abnormality in the extrathoracic soft tissues. risk factors), consider optional CT Chest at 12 months. (Reference: Perico) 3. Incidental/nonacute findings are listed in the report. REFERENCES: Perico Rivera et al. Guidelines for Management of Incidental Pulmonary Nodules Detected on CT Images: From the Fleischner Society 2017. Radiology. 2017;284(1):228-243. PROCEDURE INFORMATION: Exam: CT Abdomen And Pelvis Without Contrast Exam date and time: 11/28/2021 6:53 PM Age: 66 years old Clinical indication: Injury or trauma; Fall; Generalized; Blunt trauma (contusions or hematomas); Prior surgery; Surgery date: 6+ months; Surgery type: Gb, hyst, appx, c sections; Additional info: Fall trauma TECHNIQUE: Imaging protocol: Computed tomography of the abdomen and pelvis without contrast. Sagittal and coronal reformatted images were created and reviewed. Radiation optimization: All CT scans at this facility use at least one of these dose optimization techniques: automated exposure control; mA and/or kV adjustment per patient size (includes targeted exams where dose is matched to clinical indication); or iterative reconstruction. COMPARISON: CT abdomen pelvis w con* [id number] 10/17/2017 1:58 PM RADIATION DOSE METRICS: Total DLP (mGy-cm): 572.51 FINDINGS: Limitations: Evaluation of solid organs and vasculature is limited without intravenous contrast. Liver: Multiple calcified granulomas in the liver. Gallbladder and bile ducts: Patient has had a previous cholecystectomy. Pancreas: The pancreas is unremarkable. No pancreatic ductal dilatation. Spleen: Multiple calcified granulomas in the spleen. Adrenal glands: The right and left adrenal glands are unremarkable. Kidneys and ureters: The right kidney is unremarkable. Interval development of mild atrophy involving the left kidney with mild left hydronephrosis and mild left perinephric inflammation. The right and left ureters are unremarkable. Stomach and bowel: Scattered diverticula in the sigmoid colon. No evidence for diverticulitis. No acute abnormality in the small bowel. The stomach is collapsed, which can limit evaluation. No focal abnormality in the stomach otherwise. Appendix: Appendix not definitely visualized. No inflammatory changes in the pericecal region however. Intraperitoneal space: No free intraperitoneal air. No ascites. No loculated fluid collections to suggest an abscess. Vasculature: Moderate atherosclerotic changes in the visualized arteries. No evidence for aortic aneurysm. Lymph nodes: No lymphadenopathy. Urinary bladder: The bladder is unremarkable. Reproductive: The uterus, right ovary, and left ovary are unremarkable. Bones/joints: Degenerative changes in the spine, sacroiliac joints, and hips. Soft tissues: No acute abnormality in the extra-abdominal soft tissues. CT/[place] [id number] IMPRESSION: 1. Mild ground-glass opacification in the lateral left lingula and anterolateral left lower lobe suspicious for pulmonary contusion. 2. Noncalcified nodule in the right middle lobe with an average measurement of 5 mm (series 3, image 43). For patients at low risk (minimal or absent history of smoking and of other known risk factors), no routine follow-up is indicated. For patients at high risk (history of smoking or of other known IMPRESSION: 1. Interval development of mild atrophy involving the left kidney with mild left hydronephrosis and mild left perinephric inflammation. Findings could suggest left UPJ obstruction. Recommend clinical correlation. 2. No evidence for acute traumatic injury in the abdomen or pelvis. 3. Scattered diverticula in the sigmoid colon. No evidence for diverticulitis. 4. Incidental/nonacute findings are listed in the report. ? Dictated By: Margarita Helm MD Signed By: Margarita Helm MD Signed Date/Time: 11/28/212012 DD/ 8613 Discharge Plan Discharge Patient Disposition: Home Clinical Impression: Fall Condition: Stable Prescriptions: New lidocaine 5 % adhesive patch,medicated 1 patch topical DAILY PRN (Reason: pain) 30 Days Qty: 30 0RF Rx Instructions: leave on most painful area for up to 12 hrs Biofreeze (menthol) 5 % gel 1 ea topical BID PRN (Reason: pain) 10 Days Qty: 1 0RF Percocet 5-325 mg tablet 1 tab PO Q8H PRN (Reason: pain) Qty: 9 0RF No Action cetirizine-pseudoephedrine [Zyrtec-D] 5-120 mg tablet extended release 12 hr 1 tab PO BID acetaminophen [Tylenol] 325 mg capsule 325 mg PO QID PRN ibuprofen 200 mg capsule 200 mg PO Q6H PRN acetaminophen-codeine 300-30 mg tablet 1 tab PO Q4H PRN (Reason: pain) Qty: 30 0RF Discharge Orders: Discharge ED (Routine); Ordered 11/28/21 Ordered By: Marco A Torres Discharge Diet: Advance as tolerated Discharge Activity: Increase activity as tolerated Patient Instructions: Fall Prevention (ED) Activity Restrictions/Additional Instructions: Come back if you have any new or concerning issues. Coding Level of Care Code ED Exercise Instruct for Rafy Fwd Exam Comprehensive
[2021-11-28 18:20] VITALS: RESP 18
[2021-11-28] MEDS: acetaminophen 500 mg Tablet PO (18:20)
[2021-11-28] MEDS: morphine 4 mg/mL SDV 1 mL IM ×2 (18:20→22:25)
[2021-11-28 20:57] LABS: Add Urine Microscopic? NO; Charge for UA Resulting for Rev
[2021-11-28 21:06] LABS: Basophils % 0.3 %; Eosinophils # 0.1 10^3/uL (0.0-0.8); Hematocrit 43.7 % (37.0-47.0); Hemoglobin 14.8 g/dL (11.5-15.3); Lymphocytes # 3.6 10^3/uL (0.8-4.8); Lymphocytes % 38.1 %; Mean Corpuscular HGB Conc 33.9 g/dL (30.0-36.0); Mean Corpuscular Hemoglobin 31.2 pg (28.0-34.0); Mean Platelet Volume 9.4 fL (7.4-10.4); Monocytes # 0.6 10^3/uL (0.2-0.9); Neutrophils # 5.07 10^3/uL (1.8-7.7); Neutrophils % 54.4 %; Nucleated Red Blood Cells % 0 %; Platelet Count 257 10^3/cmm (130-400); Red Blood Count 4.75 10^6/uL (4.1-5.3); Red Cell Distribution Width 13.2 % (12.1-15.1); White Blood Count 9.3 10^3/uL (4.0-10.0)
--- NOTE | 2021-11-28 21:06 | ECG_ITS ---
[facility] Test Date: 2021-11-28 Pat Name: Sharon Munguia Department: Room: Gender: Female Manager Digital: : 1955 Requested By: Marco A Torres Order Number: [id number] Canelo MD: Jyoti Cedillo M.D. Measurements Intervals [place] Rate: 67 P: 13 GA: 127 QRS: 28 QRSD: 91 T: 41 QT: 412 QTc: 437 Interpretive Statements SINUS RHYTHM No previous ECG available for comparison Electronically Signed On 11-29-2021 6:03:58 CDT by Jyoti Cedillo M.D. [email or web address]
[2021-11-28 21:07] LABS: Bilirubin Urine Neg (Negative); Blood Urine Neg (Negative); Glucose Urine UA Norm (Normal); Ketones Urine Negative (Negative); Leukocyte Esterase Urine Negative (Negative); Nitrate Urine Negative (Negative); Protein Urine Neg (Negative); Urine Appearance SL Hazy (CLEAR); Urine Color Yellow (Yellow); Urobilinogen Urine Norm (Negative); pH Urine 5 (5-7)
[2021-11-28 21:34] LABS: Alanine Aminotransferase 21 U/L (0-33); Albumin Level 4.3 g/dL (3.5-5.2); Alkaline Phosphatase 96 U/L (35-105); Aspartate Amino Transferase 19 U/L (0-32); Blood Urea Nitrogen 15 mg/dL (8-23); Calcium 9.6 mg/dL (8.5-10.5); Carbon Dioxide 25 mmol/L (22-29); Chloride 103 mmol/L (98-107); Globulin 2.7 g/dL (1.3-4.6); Glomerular Filtration Rate 49.7 mL/min (90-130); Glucose 83 mg/dL (65-115); Lipase 125 U/L (13-60); Osmolality Calculated 286 mOsm/kg (285-295); Sodium 138 mmol/L (136-145); Total Bilirubin 0.5 mg/dL (0.15-1.2)
[2021-11-28 21:37] LABS: Troponin(5th) Baseline 15 ng/L (0-10)
[2021-11-28 22:46] LABS: Troponin 5 2HR 14.79 ng/L (0-10)
[2021-11-28 22:49] LABS: Troponin 5 2HR Delta -0.21 ABS# (0-10)
[2021-11-28 23:11] VITALS: BP 155/79; PULSE 79; RESP 18; O2SAT 97
== END 2021-11-28 23:20 | disposition home or self-care (01) ==
PROVIDERS: Emergency Provider Emergency Medicine
DX: R07.81 Pleurodynia (principal); W01.0XXA Fall on same level from slipping, tripping and stumbling without subsequent striking against object, initial encounter
CPT/HCPCS: 70450; 70486; 71250; 74176; 80053; 81003; 83690; 84484; 85025; 93005; 96372; 99285; J2270

== ENCOUNTER → 2025-03-22 10:39 | Outpatient (BNVA) | payer MEDICARE, SELFPAY | PROVIDERS: Visit Provider Podiatrist Foot & Ankle Surgery | DX: E11.8 Type 2 diabetes mellitus with unspecified complications (principal); Q82.8 Other specified congenital malformations of skin; M77.41 Metatarsalgia, right foot; M77.42 Metatarsalgia, left foot | CPT/HCPCS: 99204 ==